=== PATIENT | female | born 1980 | race Two or more races ===

== ENCOUNTER 2019-05-12 16:38 | Inpatient (IN) | payer MEDICAID ==
[~2019-05-12] VITALS: Ht 157.5 cm; Wt 70.8 kg
[2019-05-12] MEDS ORDERED: BUSP5TAB20 PO (16:45)
[2019-05-12] MEDS ORDERED: ALPR0.255 PO (16:45)
[2019-05-12 17:45] LABS: BASOPHILS % (AUTO) 0.6 % (0.0-2.0); EOSINOPHILS % (AUTO) 2.9 % (1.0-6.0); HEMATOCRIT 40.8 % (36-46); HEMOGLOBIN 13.6 g/dL (12.0-16.0); LYMPHOCYTES # (AUTO) 3.4 K/uL (1.0-4.8); LYMPHOCYTES % (AUTO) 29.1 % (22.0-44.0); MEAN CORPUSCULAR HEMOGLOBIN 28.4 pg (26.0-34.0); MEAN CORPUSCULAR HGB CONC 33.5 G/dL (31.0-37.0); MEAN CORPUSCULAR VOLUME 85 fL (80-100); MONOCYTES # (AUTO) 0.8 K/uL (0.1-1.0); MONOCYTES % (AUTO) 7.2 % (2.0-9.0); NEUTROPHILS # (AUTO) 7.1 K/uL (1.8-7.7); NEUTROPHILS % (AUTO) 60.2 % (40.0-70.0); PLATELET COUNT (AUTO) 426 K/uL (150-450); RED BLOOD CELL COUNT(AUTO) 4.81 MIL/uL (4.00-5.20); RED CELL DISTRIBUTION WIDTH 13.2 % (11.5-14.5)
[2019-05-12 17:59] LABS: ANION GAP 8 mmol/L (8-16); CALCIUM, TOTAL 8.7 mg/dL (8.8-10.5); CARBON DIOXIDE 28 mmol/L (22-29); CHLORIDE 103 mmol/L (98-107); CREATININE 0.72 mg/dL (0.60-1.30); GLOMERULAR FILTR. RATE CALC > 60 mL/min (>60); GLUCOSE,RANDOM 73 mg/dL (70-110); POTASSIUM 3.8 mmol/L (3.5-5.1); SODIUM SERUM 139 mmol/L (136-145); UREA NITROGEN, BLOOD 7 mg/dL (7-18)
[2019-05-12 18:02] LABS: ALANINE AMINOTRANSFERASE 13 U/L (12-78); ALBUMIN 3.6 g/dL (3.4-5.0); ALKALINE PHOSPHATASE 101 U/L (46-116); ASPARTATE AMINOTRANSFERASE 10 U/L (15-37); BILIRUBIN,TOTAL 0.1 mg/dL (0.1-1.0); TOTAL PROTEIN, SERUM 7.3 g/dL (6.4-8.2)
[2019-05-12] MEDS ORDERED: IBUPROFEN 600 MG TABLET PO ONE (19:00)
[2019-05-12] MEDS ORDERED: LORazepam 2 MG TABLET PO ONE (19:45)
[2019-05-12] MEDS ORDERED: OLANZapine 5 MG RAPDIS TABLET PO PRN (21:30)
[2019-05-12] MEDS ORDERED: ZOLPIDEM TARTRATE 10 MG TABLET PO PRN (21:30)
[2019-05-13] MEDS: LORazepam 1 MG TABLET PO PRN ×2 (03:28→12:51)
[2019-05-13 04:03] VITALS: BP 149/95
[2019-05-13] MEDS ORDERED: INFLUENZA VIRUS VACCINE QVS 2019-20 (3YR+)/PF 60 MCG/0.5 ML SYRINGE IM ONE (05:45)
[2019-05-13 07:21] LABS: CHOL/HDL RATIO 3.6 (3.9-5.7)
[2019-05-13 08:30] VITALS: BP 119/69
[2019-05-13] MEDS ORDERED: MAG HYDROX/AL HYDROX/SIMETH ES 30 ML SUSPENSION UDCUP PO PRN (14:15)
[2019-05-13] MEDS ORDERED: LOPERAMIDE HCL 2 MG CAPSULE PO PRN (14:15)
[2019-05-13] MEDS ORDERED: PROMETHAZINE HCL 25 MG TABLET PO PRN (14:15)
[2019-05-13] MEDS ORDERED: TUBERCULIN, PURIFIED PROTEIN DERIVATIVE 5 TU/0.1 ML SYRINGE ID ONE (14:15)
[2019-05-13] MEDS ORDERED: GuaiFENesin/D-METHORPHAN [SUGAR-FREE] 200-20MG/10 ML SYRUP UDCUP PO PRN (14:15)
[2019-05-13] MEDS ORDERED: ACETAMINOPHEN 325 MG TABLET PO PRN (14:15)
[2019-05-13] MEDS ORDERED: MAGNESIUM HYDROXIDE SUSPENSION 30 ML UDCUP PO PRN (14:15)
[2019-05-13] MEDS ORDERED: HydrOXYzine PAMOATE 50 MG CAPSULE PO PRN (14:15)
[2019-05-13] MEDS: GABAPENTIN 100 MG CAPSULE PO SCH ×2 (16:19→20:35)
[2019-05-13] MEDS: THIAMINE HCL 100 MG TABLET PO SCH (16:19)
[2019-05-13 17:00] VITALS: BP 100/63
[2019-05-13] MEDS: OLANZapine 5 MG RAPDIS TABLET PO SCH (20:36)
[2019-05-13 21:48] VITALS: BP 100/63
[2019-05-14 08:32] VITALS: BP 127/76
[2019-05-14] MEDS ORDERED: FLUoxetine HCL 20 MG CAPSULE PO SCH (09:00)
[2019-05-14] MEDS: NALTREXONE HCL 50 MG TABLET PO SCH (09:58)
[2019-05-14] MEDS: THIAMINE HCL 100 MG TABLET PO SCH ×2 (09:58→16:19)
[2019-05-14] MEDS: FOLIC ACID 1 MG TABLET PO SCH (09:58)
[2019-05-14] MEDS: MULTIVITAMINS WITH MINERALS, THERAPEUTIC TABLET PO SCH (09:58)
[2019-05-14] MEDS: GABAPENTIN 100 MG CAPSULE PO SCH ×4 (09:59→20:24)
[2019-05-14 19:35] VITALS: BP 121/70
[2019-05-14] MEDS: OLANZapine 5 MG RAPDIS TABLET PO SCH (20:24)
[2019-05-15 06:32] VITALS: BP 119/76
[2019-05-15 08:00] VITALS: BP 118/74
[2019-05-15] MEDS: NICOTINE 21 MG/24 HOUR PATCH TD SCH ×3 (09:00→10:07)
[2019-05-15] MEDS ORDERED: DULoxetine HCL 20 MG CAPSULE PO SCH (09:00)
[2019-05-15] MEDS: NALTREXONE HCL 50 MG TABLET PO SCH (09:46)
[2019-05-15] MEDS: GABAPENTIN 100 MG CAPSULE PO SCH ×2 (09:46→12:58)
[2019-05-15] MEDS: FOLIC ACID 1 MG TABLET PO SCH (09:46)
[2019-05-15] MEDS: THIAMINE HCL 100 MG TABLET PO SCH ×2 (09:47→16:32)
[2019-05-15] MEDS: MULTIVITAMINS WITH MINERALS, THERAPEUTIC TABLET PO SCH (09:47)
[2019-05-15] MEDS: LORazepam 1 MG TABLET PO PRN (12:59)
[2019-05-15] MEDS ORDERED: GABA-529 PO (15:43)
[2019-05-15] MEDS ORDERED: DULO20CA30 PO (15:43)
[2019-05-15] MEDS ORDERED: OLAN5TAB30 PO (15:43)
[2019-05-15] MEDS ORDERED: NALT50TA PO (15:43)
[2019-05-15] MEDS: GABAPENTIN 300 MG CAPSULE PO SCH (16:32)
[2019-05-15 17:11] VITALS: BP 132/73
[2019-05-15] MEDS ORDERED: OLANZapine 10 MG RAPDIS TABLET PO SCH (21:00)
[2019-05-15] MEDS ORDERED: MICONAZOLE NITRATE 2% 45 GM VAGINAL CREAM VG SCH (21:00)
[2019-05-16 06:42] VITALS: BP 137/77
[2019-05-16 08:11] VITALS: BP 136/89
[2019-05-16] MEDS ORDERED: DULoxetine HCL 30 MG CAPSULE PO SCH (09:00)
[2019-05-16] MEDS: GABAPENTIN 300 MG CAPSULE PO SCH ×2 (09:07→12:11)
[2019-05-16] MEDS: NALTREXONE HCL 50 MG TABLET PO SCH (09:08)
[2019-05-16] MEDS: FOLIC ACID 1 MG TABLET PO SCH (09:08)
[2019-05-16] MEDS: MULTIVITAMINS WITH MINERALS, THERAPEUTIC TABLET PO SCH (09:08)
[2019-05-16] MEDS: THIAMINE HCL 100 MG TABLET PO SCH (09:08)
[2019-05-16] MEDS: NICOTINE 21 MG/24 HOUR PATCH TD SCH (09:15)
[2019-05-16] MEDS ORDERED: NICO-802 TD (09:32)
[2019-05-16] MEDS ORDERED: MICO1KIT18 TP (09:41)
== END 2019-05-16 15:00 | disposition home or self-care (01) | DRG 750 ==
LOC: EMS 16:41 → 3EI 05-13 02:29
PROVIDERS: ADMIT Psychiatry & Neurology Psychiatry; ATTEND Psychiatry & Neurology Psychiatry
DX: F25.9 Schizoaffective disorder, unspecified (principal); R45.851 Suicidal ideations; Z91.19 Patient's noncompliance with other medical treatment and regimen; F17.200 Nicotine dependence, unspecified, uncomplicated; F32.9 Major depressive disorder, single episode, unspecified; Z65.3 Problems related to other legal circumstances; Z88.2 Allergy status to sulfonamides; Z53.20 Procedure and treatment not carried out because of patient's decision for unspecified reasons
CPT/HCPCS: 93005; G0480